=== PATIENT | female | born 1945 | race Caucasian/White ===

== ENCOUNTER 2017-03-17 17:57 | Emergency (ER) | payer MEDICAID ==
[~2017-03-17] VITALS: Ht 152.4 cm; Wt 59.0 kg
[2017-03-17] MEDS ORDERED: HYDROCODONE/APAP 5-325MG TABLET PO ONE (18:30)
[2017-03-17] MEDS ORDERED: HYDROCODONE/APAP 5-325MG TABLET ONE (18:51)
--- NOTE | 2017-03-17 19:18 | NUR ---
REPORT TAKEN FROM DAY SHIFT RN. ASSUMING CARE AT THIS TIME.
--- NOTE | 2017-03-17 19:37 | NUR ---
Patient discharged to home in stable conditon. Written and verbal after care instructions given. Patient verbalizes understanding of instructions. Ambulated from ER w/ steady gait w/ use of crutches. Accompanied by daughter.
[2017-03-17 19:39] VITALS: BP 110/62
== END 2017-03-17 19:39 | disposition home or self-care (01) ==
LOC: ER 17:58
DX: S83.92XA Sprain of unspecified site of left knee, initial encounter (principal); I10 Essential (primary) hypertension; W01.0XXA Fall on same level from slipping, tripping and stumbling without subsequent striking against object, initial encounter; Y93.89 Activity, other specified; Y92.89 Other specified places as the place of occurrence of the external cause; Y99.8 Other external cause status
CPT/HCPCS: 29505; 73564; 99284; A4663